=== PATIENT | female | born 1980 | race Caucasian/White ===

== ENCOUNTER 2018-08-29 15:51 | Emergency (ER) | payer SELFPAY ==
[~2018-08-29] VITALS: Ht 162.6 cm; Wt 113.4 kg
[2018-08-29 16:08] LABS: BILIRUBIN,URINE SMALL (NEG); CLARITY,URINE CLOUDY; COLOR,URINE AMBER; NITRITE,URINE NEGATIVE (NEG); PROTEIN,URINE NEGATIVE (NEG-TRACE); UROBILINOGEN,URINE 0.2 mg/dL (0.2 mg/dL)
[2018-08-29 16:15] LABS: SQUAMOUS EPITHELIAL CELL,UR MANY /LPF
[2018-08-29 16:16] LABS: AMORPHOUS SEDIMENT,UR PRESENT /HPF; BACTERIA,URINE MOD /HPF (0-FEW); YEAST,URINE PRESENT /HPF
[2018-08-29 16:23] LABS: U PREG PATIENT NEGATIVE (NEG)
[2018-08-29 16:25] VITALS: BP 160/70
[2018-08-29] MEDS ORDERED: CIPR500T94 PO (16:31)
[2018-08-29] MEDS ORDERED: FLUC150T PO (16:31)
--- NOTE | 2018-08-29 16:32 | PHYS DOC ---
Adult General Chief Complaint Chief Complaint: PAIN ON URINATION [facility] HPI Patient is a 38 year old female who presents with has frequent urinary tract infection and has already spoken to her doctor who is Dr. Pérez. She states she also has nausea and burning and frequency with urination. She is just finished Keflex for pneumonia. Since her period was August 21. She is allergic to penicillin, sulfas, Macrobid, vancomycin, Demerol, iodine. She has history of diabetes and asthma. Denies fever. Review of Systems Review of Systems Constitutional: Denies fever or chills [] Eyes: Denies change in visual acuity, redness, or eye pain [] HENT: Denies nasal congestion or sore throat [] Respiratory: Denies cough or shortness of breath [] Cardiovascular: No additional information not addressed in HPI [] GI: Denies abdominal pain. nausea, denies vomiting, bloody stools or diarrhea [] : dysuria. Denies hematuria [] Musculoskeletal: back pain due to recent illness and coughing or joint pain [] Integument: Denies rash or skin lesions [] Neurologic: Denies headache, focal weakness or sensory changes [] All other systems were reviewed and found to be within normal limits, except as documented in this note. Current Medications Current Medications Current Medications Medications (Trade) Dose Ordered Sig/Angela Start Time Stop Time Status Last Admin Dose Admin Ondansetron HCl (Zofran Odt) 4 mg 1X ONCE 08/29/18 16:45 08/29/18 16:49 DC 08/29/18 16:52 4 MG Allergies Allergies Allergies Coded Allergies Type Severity Reaction Last Updated Verified Penicillins Allergy Intermediate 08/29/18 Yes Sulfa (Sulfonamide Antibiotics) Allergy Intermediate 08/29/18 Yes iodine Allergy Intermediate 08/29/18 Yes meperidine Allergy Intermediate 08/29/18 Yes nitrofurantoin Allergy Intermediate 08/29/18 Yes sulfamethoxazole Allergy Intermediate 08/29/18 Yes trimethoprim Allergy Intermediate 08/29/18 Yes vancomycin Allergy Intermediate 08/29/18 Yes Physical Exam Physical Exam Constitutional: Well developed, well nourished, no acute distress, non-toxic appearance. [] HENT: Normocephalic, atraumatic, bilateral external ears normal, oropharynx moist, no oral exudates, nose normal. [] Eyes: PERRLA, EOMI, conjunctiva normal, no discharge. [] Neck: Normal range of motion, no tenderness, supple, no stridor. [] Cardiovascular:Heart rate regular rhythm, no murmur [] Lungs & Thorax: Bilateral breath sounds clear to auscultation [] Abdomen: Urinary tract infection. Bowel sounds normal, soft, no tenderness, no masses, no pulsatile masses. [] Skin: Warm, dry, no erythema, no rash. [] Back: No tenderness, no CVA tenderness. [] Extremities: No tenderness, no cyanosis, no clubbing, ROM intact, no edema. [] Neurologic: Alert and oriented X 3, normal motor function, normal sensory function, no focal deficits noted. [] Psychologic: Affect normal, judgement normal, mood normal. [] Current Patient Data Vital Signs Vital Signs Date Time Temp Pulse Resp B/P (MAP) Pulse Ox O2 Delivery O2 Flow Rate FiO2 08/29/18 16:25 98.2 100 18 160/70 (100) 96 Room Air 98.2 Lab Values Laboratory Tests Test 08/29/18 15:55 Urine Collection Type Unknown Urine Color Melina Urine Clarity Cloudy Urine pH 5.0 Urine Specific [place] >=1.030 Urine Protein Negative mg/dL (NEG-TRACE) Urine Glucose (UA) 100 mg/dL (NEG) Urine Ketones (Stick) Trace mg/dL (NEG) Urine Blood Small (NEG) Urine Nitrite Negative (NEG) Urine Bilirubin Small (NEG) Urine Urobilinogen Dipstick 0.2 mg/dL (0.2 mg/dL) Urine Leukocyte Esterase Moderate (NEG) Urine RBC 1-2 /HPF (0-2) Urine WBC 11-20 /HPF (0-4) Urine Squamous Epithelial Cells Many /LPF Urine Amorphous Sediment Present /HPF Urine Bacteria Mod /HPF (0-FEW) Urine Mucus Mod /LPF Urine Yeast Present /HPF Urine Test Negative (NEG) EKG EKG [] Radiology/Procedures Radiology/Procedures [] Course & Med Decision Making Course & Med Decision Making Patient is a 38 year old female who presents with has frequent urinary tract infection and has already spoken to her doctor who is Dr. Pérez. She states she also has nausea and burning and frequency with urination. She is just finished Keflex for pneumonia. Since her period was August 21. She is allergic to penicillin, sulfas, Macrobid, vancomycin, Demerol, iodine. She has history of diabetes and asthma. Denies fever. Alert and oriented. Skin pink warm and dry. Mucous membranes moist. Abdomen is soft and nontender. Afebrile. Speaks in full clear sentences. Urine does show bacteria and some blood and yeast. She is given pressures for Diflucan and ciprofloxacin. States that she get in to see her doctor on Thursday. Patient is told to continue taking her Excedrin or ibuprofen for any kind of pain and drink plenty of fluids. Dragon Disclaimer Dragon Disclaimer This electronic medical record was generated, in whole or in part, using a voice recognition dictation system. Departure Departure Impression: Primary Impression: UTI (urinary tract infection) Additional Impression: Yeast infection Disposition: HOME, SELF-CARE Condition: STABLE Patient Instructions: Urinary Tract Infection, Yeast Infection of the Skin, [id number] Additional Instructions: FOLLOW UP WITH DOCTOR SOON YOU CAN. DRINK PLENTY OF FLUIDS. Scripts Fluconazole (DIFLUCAN) 150 Mg Tablet 1 TAB PO ONCE, #1 TAB 1 Refill Prov: PEBBLES KEANE APRN 08/29/18 Ciprofloxacin Hcl (CIPRO) 500 Mg Tablet 1 TAB PO BID, #20 TAB Prov: PEBBLES KEANE APRN 08/29/18 Problem Qualifiers Primary Impression: UTI (urinary tract infection) Urinary tract infection type: site unspecified Hematuria presence: with hematuria Qualified Codes: N39.0 - Urinary tract infection, site not specified ; R31.9 - Hematuria, unspecified PEBBLES KEANE APRN Aug 29, 2018 16:32
[2018-08-29] MEDS ORDERED: ONDANSETRON ODT 4 MG TAB.RAPDIS. PO ONE (16:45)
== END 2018-08-29 16:48 | disposition home or self-care (01) ==
LOC: ER 15:51
DX: N39.0 Urinary tract infection, site not specified (principal); B37.9 Candidiasis, unspecified; E11.9 Type 2 diabetes mellitus without complications; J45.909 Unspecified asthma, uncomplicated; R31.9 Hematuria, unspecified; Z87.440 Personal history of urinary (tract) infections; Z88.0 Allergy status to penicillin; Z88.2 Allergy status to sulfonamides; Z91.041 Radiographic dye allergy status; Z88.8 Allergy status to other drugs, medicaments and biological substances; Z88.1 Allergy status to other antibiotic agents
CPT/HCPCS: 81001; 81025; 99283; Q0162